=== PATIENT | female | born 1940 | race Caucasian/White ===

== ENCOUNTER 2018-03-09 11:40 | Inpatient (IN) | payer MEDICARE, MEDICAID ==
[2018-03-09 12:19] LABS: #Basophils 0.1 thou/uL (0.0-0.2); #Eosinphils 0.1 thou/uL (0.0-0.7); #Lymphocytes 1.3 thou/uL (1.20-3.40); #Monocytes 0.5 thou/uL (0.11-0.59); %Basophils 0.8 % (0.0-1.0); %Eosinophils 1.1 % (0.0-10.0); %Monocytes 4.2 % (0.0-10.0); Hemoglobin 12.1 g/dL (12.0-16.0); Mean Corpuscular HGB CONC 34.9 g/dL (32.0-36.0); Mean Corpuscular Hemoglobin 29.8 pg (27.0-31.0); Mean Corpuscular Volume 85.3 fL (78.0-98.0); Mean Platelet Volume 6.9 fL (7.4-10.4); Platelet Count 179 thou/uL (130-400); Red Blood Cell (RBC) Count 4.06 mill/uL (4.20-5.40)
[2018-03-09 12:35] LABS: ALT (SGPT) 9 U/L (8-55); AST (SGOT) 27 U/L (5-34); Albumin 3.9 g/dL (3.4-4.8); Alkaline Phosphatase 91 U/L (40-150); Anion Gap 19 mmol/L (10-20); BUN (Urea Nitrogen) 52 mg/dL (9.8-20.1); Bilirubin, Total 0.5 mg/dL (0.2-1.2); Calc. Creatinine Clearance 0 mL/min (70-130); Calcium 9.5 mg/dL (7.8-10.44); Carbon Dioxide 20 mmol/L (23-31); Chloride 110 mmol/L (98-107); Estimated GFR-MDRD 23; Globulin 3.5 g/dL (2.4-3.5); Glucose 136 mg/dL (83-110); Lipase 48 U/L (8-78); Potassium 4.7 mmol/L (3.5-5.1); Protein, Total 7.4 g/dL (6.0-8.3); Sodium 144 mmol/L (136-145)
[2018-03-09 12:36] LABS: CKMB 2.3 ng/mL (0-6.6); Troponin I 0.013 ng/mL (< 0.028)
[2018-03-09 12:42] LABS: Clarity Clear (Clear); Leukocyte Negative (Negative); Nitrite Negative (Negative); pH, Urine 5.5 (5.0-9.0)
[2018-03-09 12:43] LABS: Bilirubin Negative (Negative); Blood, Urine Negative (Negative); Glucose, Urine (Dipstick) Negative (Negative); Protein, Urine (Dipstick) Negative (Neg-Trace); Urobilinogen 0.2 mg/dL (0.2-1.0)
--- NOTE | 2018-03-09 13:22 | CT ---
CT ABDOMEN AND PELVIS NONCONTRAST: History: Flank pain. Comparison: 07-12-17 FINDINGS: Each renal collecting system, uterus, and urinary bladder are decompressed without stone apparent. Lack of contrast decreases sensitivity of exam for other abnormalities. Gallbladder is surgically abs ent. No evidence of bowel obstruction. There is fluid throughout the colon. Circumferential wall thic kening involving the distal sigmoid colon and rectum. Degenerative changes of the lumbar spine. Elect ronic stimulator overlies the sacrum with wires extending into the sacral neural foraminal. IMPRESSION: 1. No CT evidence of urinary tract obstruction or calcification. 2. Circumferential wall thickening in the lower sigmoid colon and rectum. Clinical correlation regard ing other signs and symptoms of distal sigmoid colitis/proctitis is required. Cause is not evident. POS: [facility]
--- NOTE | 2018-03-09 13:23 | RAD ---
AP CHEST: Indication: Chest pain. Comparison: None. FINDINGS: Heart size is accentuated by the exam technique. No definite consolidation, pleural effusion, or pneu mothorax is evident. No acute osseous abnormalities are evident. IMPRESSION: No acute cardiopulmonary abnormality. POS: [facility]
[2018-03-09 15:07] LABS: Anion Gap 17 mmol/L (10-20); BUN (Urea Nitrogen) 52 mg/dL (9.8-20.1); Calc. Creatinine Clearance 0 mL/min (70-130); Calcium 8.8 mg/dL (7.8-10.44); Carbon Dioxide 19 mmol/L (23-31); Chloride 113 mmol/L (98-107); Estimated GFR-MDRD 25; Glucose 115 mg/dL (83-110); Potassium 4.6 mmol/L (3.5-5.1); Sodium 144 mmol/L (136-145)
[2018-03-09] MEDS ORDERED: Ondansetron HCl/PF 4 MG/2 ML Vial SLOW IVP PRN (16:45)
[2018-03-09] MEDS ORDERED: Ondansetron ODT 4 MG TAB PO PRN (16:45)
[2018-03-09] MEDS: Sodium Chloride 0.9% 1,000 ML IV SCH (17:44)
[2018-03-09] MEDS ORDERED: Fluticasone Propionate Nasal Spray 16 gm Bottle NASAL PRN (18:48)
[2018-03-09] MEDS ORDERED: Acetaminophen 325 MG TAB PO PRN (18:48)
[2018-03-09] MEDS ORDERED: Loperamide HCl 2 MG CAP PO PRN (18:48)
[2018-03-09] MEDS ORDERED: Loratadine 10 MG TAB PO PRN (18:48)
[2018-03-09] MEDS: Artificial Tear Sol 15 ML BOT EA EYE SCH (20:00)
[2018-03-09] MEDS: Carbidopa/Levodopa 25-100 mg Tablet PO SCH (20:01)
[2018-03-09] MEDS: Famotidine 20 MG TAB PO SCH (20:02)
[2018-03-09] MEDS: Gabapentin 100 MG CAP PO SCH (20:16)
[2018-03-09] MEDS: Acetaminophen 325 MG TAB PO PRN (20:17)
[2018-03-09] MEDS ORDERED: Enoxaparin Sodium 30 MG/0.3 ML SYRINGE SC SCH (21:00)
[2018-03-09] MEDS ORDERED: metroNIDAZOLE 250 MG TAB PO SCH (21:00)
--- NOTE | 2018-03-10 00:11 | HP ---
CHIEF COMPLAINT: Nausea/vomiting/diarrhea/dehydration. HISTORY OF PRESENT ILLNESS: Ms. Spear is a 77-year-old female resident at [facility] who presented to the ER today with complaints of nausea, vomiting, and diarrhea with onset this morning. The patient was last seen at the half-way yesterday and was in her chronic usual state. She apparently had 5 episodes of emesis, as well as hypotension at the facility and was transported to the ER for further evaluation. Her ER workup revealed active diarrhea with acute kidney injury. Her creatinine was elevated above her baseline creatinine of 1.0 with history of chronic kidney disease stage 2. She also was admitted for a similar episode back in 07/2017 at which point she had some thickening in the rectosigmoid colon consistent with colitis. She was treated at that time with Cipro and Flagyl. Apparently prior to that admission , she had also had a urinary tract infection. During that admission, she was given IV fluids with improvement of her blood pressure, and her renal function returned to baseline. PAST MEDICAL HISTORY: 1. Paralysis agitans/Parkinson disease. 2. Recurrent urinary tract infections. 3. Frequent falls. 4. Dementia with behavioral disturbance. 5. Vitamin D deficiency. 6. Essential hypertension. 7. Congenital coronary artery anomaly. 8. Generalized weakness. 9. Chronic constipation. 10. Chronic abnormality of gait. 11. Depression. 12. Allergic rhinitis. FAMILY HISTORY: Could not be obtained from the patient, but from her charting, she does have one son, Herbie, who is alive. He is her medical power of civil litigation attorney. SOCIAL HISTORY: Nonsmoker. No current alcohol or illicit drug use. No significant past history known. Patient never per her previous charting and has been a resident at [facility]. PAST SURGICAL HISTORY: Cholecystectomy and electronic stimulator placement. MEDICATIONS: 1. Zofran ODT 4 mg p.o. q.8 hours p.r.n. nausea. 2. Voltaren 100 grams topically t.i.d. p.r.n. 3. Vitamin D3 of 1000 units p.o. daily. 4. Sertraline 25 mg p.o. at bedtime. 5. Namenda 10 mg p.o. b.i.d. 6. Metamucil 174 grams p.o. daily. 7. Multivitamin 1 p.o. daily. 8. Meloxicam 15 mg p.o. daily. 9. Loratadine 10 mg p.o. q.12 hours p.r.n. 10. Imodium 1 cap p.o. q.4 hours p.r.n. diarrhea. 11. Lisinopril 20 mg p.o. daily. 12. Gabapentin 100 mg p.o. t.i.d. 13. Flonase 1 spray in each naris q.12 hours p.r.n. allergies. 14. Exelon 1 patch transdermally daily. 15. Colace 1 capsule daily. 16. Carbidopa/levodopa extended release 25/100 one p.o. b.i.d. 17. Dulcolax 5 mg p.o. daily p.r.n. 18. Aspirin 81 mg p.o. daily. 19. Natural Tears 1 drop in each eye b.i.d. 20. Acetaminophen 2 capsules p.o. q.4 hours p.r.n. 21. Acetaminophen 650 mg [place] q.4 hours p.r.n. ALLERGIES: IODINE, PENICILLIN. REVIEW OF SYSTEMS: Unable to be obtained from the patient except that she denies pain. She has been having nausea, vomiting, and diarrhea at the facility and per nursing staff here, there is mucus and large volume stool. She denies abdominal pain. PHYSICAL EXAMINATION: VITAL SIGNS: Presenting vitals to the ER, blood pressure 77/50, heart rate 79, respirations 20, 0 pain, and 96% O2 sat on room air. At my exam, Temperature 98.6, heart rate 89, respirations 12, O2 sat 95% on room air, blood pressure 105 /53. . GENERAL: Well-developed female lying in bed with her eyes closed. She will not open her eyes on command, but answers questions with short 1-2 word answers and follows commands. HEENT: Pupils are equally round, reactive to light and accommodation, unable to evaluate extraocular movements. Nares are patent without discharge. OP is clear. NECK: Supple, without lymphadenopathy, thyromegaly, JVD or bruit. HEART: Regular rate and rhythm with normal S1, S2. No murmurs, clicks, rubs, or gallops. LUNGS: Clear to auscultation with good air entry bilaterally. No crackles or wheezes. ABDOMEN: Hypoactive bowel sounds in all four quadrants, soft, nontender, nondistended, no masses, guarding, or rebound tenderness. EXTREMITIES: No cyanosis or clubbing. Trace pretibial edema bilaterally. SKIN: Stage 1 pressure ulcer to coccyx. NEUROLOGIC: Generalized weakness, but cranial nerves II-XII are grossly intact without obvious focal deficits. Mask-like facies. LABORATORY DATA: White count 11.0 with 82% neutrophils, 12% lymphocytes, hemoglobin 12.1, hematocrit 34.6, platelets 179. Sodium 144, potassium 4.7, chloride 110, bicarb 20, BUN 52, creatinine 2.11, glucose 136, calcium 9.5, total bilirubin 0.5, AST 27, ALT 9, alkaline phosphatase 91, CK-MB 2.3, troponin I 0.013, B-type natriuretic peptide 377.5 (unknown baseline), serum total protein 7.4, albumin 3.9, globulin 3.5, lipase 48, lactic acid 3.0, repeat lactic acid at 14:45 of 2.8. Repeat basic metabolic profile at 02:45 with sodium 144, potassium 4.6, chloride 113, bicarb 19, BUN 52, creatinine 1.91 , glucose 115, calcium 8.8. Urinalysis is completely clear. C. diff, blood culture, stool culture, urine culture are pending. IMAGING: Chest x-ray shows no acute cardiopulmonary abnormality. Heart size is accentuated by the exam technique. No definite consolidation, pleural effusion, or pneumothorax is evident. No acute osseous abnormalities are evident. CT scan of the abdomen and pelvis without contrast shows no CT evidence of urinary tract obstruction or calcification. Circumferential wall thickening in the lower sigmoid colon and rectum. Clinical correlation regarding other signs and symptoms of distal sigmoid colitis/proctitis required. Cause not evident. Noted on this that the gallbladder is surgically absent. No evidence of bowel obstruction. Fluid is noted throughout the colon. Degenerative changes of the lumbar spine. Electronic stimulator overlies the sacrum with wires extending into the sacral neural foramen. ASSESSMENT AND PLAN: 1. Acute gastroenteritis/colitis. The patient's hypotension has been corrected with IV fluids. We will hold her antihypertensive regimen of lisinopril at this time until her blood pressure stabilizes and her renal function improves. We will empirically start Cipro and Flagyl. Send stool for C. diff and culture. Blood cultures and urine cultures will be performed and followed. We will treat her nausea with ondansetron p.o. or IV and her diarrhea with Imodium. We will add Floranex probiotic. We will give the patient Pepcid once daily for dyspepsia and GI stress ulcer prophylaxis, but renally dosed. We will repeat her CBC and basic metabolic profile in the morning. We will also hold her stool softener and constipation regimen at this time as well as her meloxicam as this can be hard on the GI tract. We will place her on a clear liquid diet and we will advance as tolerated. We will have contact precautions until her c. diff studies come back. 2. Dehydration. The patient has an unknown left ventricular ejection fraction , but for now, her blood pressure stabilized after fluids given in the emergency room. We will continue at her current rate of 100 mL per hour of normal saline. Repeat a basic metabolic profile in the morning. 3. Acute kidney injury. This is secondary to dehydration, which is secondary to copious diarrhea and vomiting. Again, we are holding her lisinopril and hydrating her. We will repeat her renal function in the morning. 4. Stage I sacral decubitus. We have ordered a foam overlay for her mattress, andrew-care and will turn the patient hourly. We will observe for improvement. 5. Parkinson's disease. The patient will be continued on her Carbidopa/ levodopa. 6. Dementia with behavioral disturbance. We will continue the patient's Exelon and Namenda. 7. Allergic rhinitis. Patient will be continued on her current regimen. 8. Depression. Patient will be continued on her sertraline. 9. Chronic pain. Patient will be continued on her gabapentin. 10. Vitamin D deficiency. Patient will be continued on her vitamin D. 11. Elevated lactic acid. This is lowering per past check. Should improve with rehydration. 12. Leukocytosis with left shift. This is likely due to infectious bacterial process. Please see problem #1. Repeat CBC in the a.m. 13. Elevated B-type natriuretic peptide. No baseline BNP for comparison. There was no signs of congestive heart failure on her chest x-ray. There is no history of on echocardiogram, so I can document her left ventricular ejection fraction. We will be cautious with her fluids. 14. Prophylaxis, patient will be given Pepcid 20 mg daily, which is renally dosed for GI stress ulcer prophylaxis and Lovenox 30 mg subcutaneous, which has been renally dosed for DVT prophylaxis. 15. Code status. I called and talked with her son, Herbie Spear, who states he is her medical power of civil litigation attorney and states that she has had an existing out of hospital DNR for many years and would like to continue that while the patient is hospitalized. REA
[2018-03-10] MEDS: Sodium Chloride 0.9% 1,000 ML IV SCH ×3 (02:24→19:22)
[2018-03-10 05:59] LABS: Anion Gap 14 mmol/L (10-20); BUN (Urea Nitrogen) 56 mg/dL (9.8-20.1); Calc. Creatinine Clearance 0 mL/min (70-130); Calcium 7.9 mg/dL (7.8-10.44); Carbon Dioxide 18 mmol/L (23-31); Chloride 115 mmol/L (98-107); Estimated GFR-MDRD 24; Glucose 84 mg/dL (83-110); Potassium 4.4 mmol/L (3.5-5.1); Sodium 143 mmol/L (136-145)
[2018-03-10 06:40] LABS: #Lymphocytes 0.7 thou/uL (1.20-3.40); #Monocytes 0.8 thou/uL (0.11-0.59); #Neutrophils 5.1 thou/uL (1.40-6.50); %Basophils 0.6 % (0.0-1.0); %Eosinophils 0.2 % (0.0-10.0); %Monocytes 11.9 % (0.0-10.0); %Neutrophils 76.3 % (42.0-75.0); Hemoglobin 8.4 g/dL (12.0-16.0); Mean Corpuscular HGB CONC 34.7 g/dL (32.0-36.0); Mean Corpuscular Hemoglobin 29.4 pg (27.0-31.0); Mean Corpuscular Volume 84.9 fL (78.0-98.0); Platelet Count 99 thou/uL (130-400); RBC Distribution Width 12.8 % (11.5-14.5); Red Blood Cell (RBC) Count 2.84 mill/uL (4.20-5.40); White Blood Cell (WBC) Count 6.7 thou/uL (4.8-10.8)
[2018-03-10] MEDS: Artificial Tear Sol 15 ML BOT EA EYE SCH ×2 (09:28→20:02)
[2018-03-10] MEDS: Multivit, Therapeutic 1 TAB PO SCH (09:32)
[2018-03-10] MEDS: Gabapentin 100 MG CAP PO SCH ×3 (09:32→20:00)
[2018-03-10] MEDS: Aspirin 81 mg Enteric Coated Tablet PO SCH (09:32)
[2018-03-10] MEDS: Floranex Packet PO SCH (09:33)
[2018-03-10] MEDS: Carbidopa/Levodopa 25-100 mg Tablet PO SCH ×2 (10:06→20:01)
[2018-03-10] MEDS: Rivastigmine 4.6mg/24 Hour PATCH TD SCH (17:05)
[2018-03-10] MEDS: Acetaminophen 325 MG TAB PO PRN (19:17)
[2018-03-10] MEDS: Famotidine 20 MG TAB PO SCH (20:01)
[2018-03-11 06:01] LABS: Anion Gap 11 mmol/L (10-20); BUN (Urea Nitrogen) 52 mg/dL (9.8-20.1); Calc. Creatinine Clearance 34 mL/min (70-130); Calcium 7.9 mg/dL (7.8-10.44); Carbon Dioxide 18 mmol/L (23-31); Chloride 117 mmol/L (98-107); Estimated GFR-MDRD 27; Glucose 86 mg/dL (83-110); Potassium 4.1 mmol/L (3.5-5.1); Sodium 142 mmol/L (136-145)
[2018-03-11 06:30] LABS: Hemoglobin 7.1 g/dL (12.0-16.0); Mean Corpuscular HGB CONC 34.6 g/dL (32.0-36.0); Mean Corpuscular Hemoglobin 29.4 pg (27.0-31.0); Mean Corpuscular Volume 84.8 fL (78.0-98.0); Mean Platelet Volume 7.1 fL (7.4-10.4); Platelet Count 79 thou/uL (130-400); RBC Distribution Width 12.9 % (11.5-14.5); Red Blood Cell (RBC) Count 2.41 mill/uL (4.20-5.40); White Blood Cell (WBC) Count 4.7 thou/uL (4.8-10.8)
[2018-03-11 06:31] LABS: #Eosinphils 0.1 thou/uL (0.0-0.7); #Lymphocytes 1.2 thou/uL (1.20-3.40); #Monocytes 0.5 thou/uL (0.11-0.59); #Neutrophils 2.9 thou/uL (1.40-6.50); %Basophils 0.5 % (0.0-1.0); %Eosinophils 2.4 % (0.0-10.0); %Lymphocytes 24.6 % (21.0-51.0); %Monocytes 10.6 % (0.0-10.0)
[2018-03-11] MEDS: Multivit, Therapeutic 1 TAB PO SCH (09:27)
[2018-03-11] MEDS: Carbidopa/Levodopa 25-100 mg Tablet PO SCH ×2 (09:27→20:08)
[2018-03-11] MEDS: Gabapentin 100 MG CAP PO SCH ×3 (09:27→20:07)
[2018-03-11] MEDS: Floranex Packet PO SCH (09:27)
[2018-03-11] MEDS: Artificial Tear Sol 15 ML BOT EA EYE SCH ×2 (09:28→20:14)
[2018-03-11] MEDS: Aspirin 81 mg Enteric Coated Tablet PO SCH (09:28)
[2018-03-11] MEDS: Rivastigmine 4.6mg/24 Hour PATCH TD SCH (09:28)
[2018-03-11] MEDS ORDERED: hydrALAZINE 20 MG/ML VIAL SLOW IVP PRN (14:26)
[2018-03-11 14:27] VITALS: BMI 28.6
[2018-03-11] MEDS ORDERED: hydrALAZINE 20 MG/ML VIAL ONE (15:01)
[2018-03-11 16:36] LABS: #Basophils 0.1 thou/uL (0.0-0.2); #Eosinphils 0.1 thou/uL (0.0-0.7); #Lymphocytes 1.1 thou/uL (1.20-3.40); #Monocytes 0.5 thou/uL (0.11-0.59); #Neutrophils 3.3 thou/uL (1.40-6.50); %Eosinophils 2.9 % (0.0-10.0); %Lymphocytes 21.6 % (21.0-51.0); %Monocytes 9.1 % (0.0-10.0); %Neutrophils 65.4 % (42.0-75.0); MDiff Complete? YES; Mean Corpuscular HGB CONC 34.8 g/dL (32.0-36.0); Mean Corpuscular Hemoglobin 29.3 pg (27.0-31.0); Mean Corpuscular Volume 84.1 fL (78.0-98.0); Mean Platelet Volume 7.2 fL (7.4-10.4); Platelet Count 95 thou/uL (130-400); RBC Distribution Width 12.7 % (11.5-14.5); Red Blood Cell (RBC) Count 2.74 mill/uL (4.20-5.40); Small Platelets SLIGHT
[2018-03-12 01:29] VITALS: TEMP 98.3
--- NOTE | 2018-03-12 03:47 | DIS ---
DATE OF ADMISSION: 03/09/2018 DATE OF DISCHARGE: 03/11/2018 ADMISSION DIAGNOSES: 1. Infectious gastroenteritis/colitis. 2. Dehydration. 3. Acute kidney injury on chronic kidney disease stage 3. 4. Lactic acidosis. DISCHARGE DIAGNOSES: 1. Infectious gastroenteritis/colitis. 2. Dehydration. 3. Acute kidney injury on chronic kidney disease stage 3. 4. Lactic acidosis. ATTENDING PHYSICIAN: Dr. [place] Burdick. PROCEDURES: 1. CT abdomen and pelvis performed on date of admission shows circumferential wall thickening in the lower sigmoid colon and rectum. Clinical correlation regarding other signs and symptoms of distal sigmoid colitis/proctitis is required. No evidence of urinary tract obstruction or calcification. 2. Chest x-ray performed on the date of admission shows no acute cardiopulmonary abnormality. 3. Blood cultures x2 negative for 48 hours. 4. Clostridium difficile antigen and toxin negative. 5. Urine culture, no growth at 48 hours. HISTORY AND PHYSICAL: Please see dictated report from the date of admission. HOSPITAL COURSE: Ms. Spear is a 77-year-old female, who is a resident of [facility], who had acute onset of vomiting and copious diarrhea as well as hypotension, and presented to the emergency room on 03/09/2018. Initially, her systolic blood pressure was in the 70s, but improved with copious IV fluid resuscitation. She also had a significant leukocytosis at 11,000 with 82% neutrophils and 12% lymphocytes. She has a history of chronic kidney disease stage 3 with a baseline GFR in the 40s, but on presentation had acute kidney injury with a BUN of 52 and creatinine 2.11. Her lactic acid level was elevated and the patient was admitted for further care. With IV fluids, her hypotension corrected. Her lisinopril was held. On the evening prior to discharge, her fluids were placed at a TKO rate and subsequently stopped this morning. Throughout the course of the day, she has had generous oral intake and has actually now become hypertensive. Her lisinopril will now be restarted. She did require one dose of hydralazine for a systolic blood pressure of greater than 180 and her blood pressure following that was 145/70. Regarding her leukocytosis, the patient was treated for presumptive infectious gastroenteritis and colitis based on her CT findings and clinical history. She was empirically started on Flagyl and Cipro. Stool studies were performed in the ER, which included a C. difficile, a stool culture. On the day of her discharge, I noted that the culture results had not come back and it turned out those initial orders had been canceled on the ED side, but I wasn't aware. I did re-order them on the day of her discharge. However, she has not had any bowel movements today. Her leukocytosis has improved to 5 on the day of her discharge. The C. diff antigen and toxin were negative and the Flagyl was discontinued when that result came back. She was continued on the Cipro and will be discharged on an additional 3-day course of Cipro 500 q.12 hours. Due to the presence of CT findings possibly similar to an event that occurred in July of this last year, I discussed with her son either repeating the CT in a few weeks versus having her see a [employer] assistant manager in a few weeks as an outpatient. She may need a colonoscopy performed for further workup, especially if her symptoms recur. Regarding her acute kidney injury, with IV fluid administration, this improved to a BUN of 52 and a creatinine of 1.79 on the day of discharge. We will repeat a basic metabolic profile in 1 week to ensure that this continues to return to baseline. The patient initially had a lactic acid level of 3, and repeat later showed this lowering to 2.8 with treatment. The patient also had a significant anemia that is presumptively due to dilution with the administration of the IV fluids, but also has a chronic component with her baseline hemoglobin somewhere in the 10-11 range. She likely also had some bleeding with her noted hemorrhoids and colitis. She had no significant hematochezia or melena noted during the admission. Repeating her hemoglobin on the afternoon of her discharge showed that it had stabilized at 8.0. Also noted, she had a decline in her platelets and this improved as well on the afternoon of her discharge. She will have a repeat CBC in approximately 1 week. Contributing factors to the declining platelet count included the administration of Lovenox due to inability to place SCDs initially due to severe diarrhea. This was discontinued and also her Pepcid that was given for GI prophylaxis was discontinued as well. This afternoon, the patient is back to her mental baseline. Her son is present. She has had adequate oral intake and has tolerated that well. She has had no emesis since the day of her admission. She has had no diarrhea or bowel movement episodes today. PHYSICAL EXAMINATION: VITAL SIGNS: Temperature 98.4, pulse 89, respirations 18, O2 sat 97% on room air, blood pressure 145/70. GENERAL: Well-developed, well-nourished, female who is now alert and oriented to her baseline. She now opens her eyes. She responds to questions and is able to give a little bit of a history. HEENT: Normocephalic, atraumatic. Pupils equally round and reactive to light and accommodation. Nares are patent without discharge. HEART: Regular rate and rhythm. Normal S1, S2. No murmurs, clicks, rubs, or gallops. LUNGS: Clear to auscultation bilaterally. No crackles or wheezes. ABDOMEN: Positive bowel sounds in all four quadrants. Soft, nondistended, nontender. No masses, guarding, or rebound tenderness. EXTREMITIES: No cyanosis or clubbing. Trace edema of the ankles. DISPOSITION: Discharge back to [facility]. CONDITION: Good. MEDICATIONS: 1. Acetaminophen 650 mg two p.o. q.4 hours. p.r.n. 2. Zofran ODT 4 mg p.o. q.8 hours p.r.n. 3. Voltaren 100 grams topically 3 times daily p.r.n. 4. Vitamin D3, 1000 units daily. 5. Sertraline 25 mg p.o. at bedtime. 6. Namenda 10 mg p.o. b.i.d. 7. Metamucil 174 grams p.o. daily. 8. Multivitamin 1 p.o. daily. 9. Imodium 1 capsule q.4 hours p.r.n. 10. Lisinopril 20 mg p.o. daily. 11. Gabapentin 100 mg p.o. t.i.d. 12. Flonase 1 spray in each naris q.12 hours p.r.n. 13. Exelon patch 13.3 mg daily. 14. Carbidopa/levodopa 25/100, one p.o. b.i.d. 15. Dulcolax suppository 5 mg p.o. daily p.r.n. constipation. 16. Aspirin 81 mg p.o. daily. 17. Artificial Tears 1 drop in each eye b.i.d. 18. Acetaminophen 2 cap p.o. q.4 hours p.r.n. 19. Tylenol suppositories 650 mg per rectum q.4 hours p.r.n. 20. Cipro 500 mg p.o. q.12 hours x3 days. 21. Floranex 1 gram p.o. daily x14 days. ADDITIONAL INSTRUCTIONS: A CBC and a BMP needs to be drawn in 1 week for followup of anemia and thrombocytopenia and to make sure her renal function returns to her baseline. The facility will perform referral and arrange transport for her to see Gastroenterology in approximately 3-4 weeks for followup of the abnormal CT findings. FOLLOWUP: Will be with my [facility] advanced practice architect, Ariadna Loyd, in approximately 7 days. Due to her deconditioning from her hospital stay, I have also ordered occupational and physical therapy to be performed at the facility. REA
[2018-03-12] MEDS: Artificial Tear Sol 15 ML BOT EA EYE SCH (08:14)
[2018-03-12] MEDS: Rivastigmine 4.6mg/24 Hour PATCH TD SCH (08:15)
[2018-03-12] MEDS: Lisinopril 20 MG TAB PO SCH ×2 (08:16→08:20)
[2018-03-12] MEDS: Carbidopa/Levodopa 25-100 mg Tablet PO SCH (08:19)
[2018-03-12] MEDS: Aspirin 81 mg Enteric Coated Tablet PO SCH (08:19)
[2018-03-12] MEDS: Multivit, Therapeutic 1 TAB PO SCH (08:20)
[2018-03-12] MEDS: Floranex Packet PO SCH (08:20)
[2018-03-12] MEDS: Gabapentin 100 MG CAP PO SCH (08:20)
[2018-03-12 08:41] VITALS: BP 150/66
== END 2018-03-12 11:55 | DRG 683 ==
LOC: BURERS 11:40 → BURMED 14:15
PROVIDERS: ADMIT Family Medicine; ATTEND Family Medicine
DX: N17.9 Acute kidney failure, unspecified (principal); A09 Infectious gastroenteritis and colitis, unspecified; E87.2 Acidosis; E86.0 Dehydration; G20 Parkinson's disease; I12.9 Hypertensive chronic kidney disease with stage 1 through stage 4 chronic kidney disease, or unspecified chronic kidney disease; F32.9 Major depressive disorder, single episode, unspecified; L89.151 Pressure ulcer of sacral region, stage 1; G89.29 Other chronic pain; E55.9 Vitamin D deficiency, unspecified; N18.3 Chronic kidney disease, stage 3 (moderate); D64.9 Anemia, unspecified; D69.6 Thrombocytopenia, unspecified; F02.80 Dementia in other diseases classified elsewhere, unspecified severity, without behavioral disturbance, psychotic disturbance, mood disturbance, and anxiety; J30.9 Allergic rhinitis, unspecified; Z88.0 Allergy status to penicillin; Z88.8 Allergy status to other drugs, medicaments and biological substances; Z79.82 Long term (current) use of aspirin; Z79.899 Other long term (current) drug therapy
CPT/HCPCS: 36415; 51701; 71045; 74176; 80048; 80053; 81003; 82274; 82553; 83605; 83690; 83880; 84484; 85025; 87040; 87086; 87324; 87449; 93005; 96360; 96361; A4216; A4353; J0360; J0744; J1650

== ENCOUNTER 2020-04-28 11:16 | Emergency (ER) | payer MEDICARE, OTHER, MEDICAID ==
[2020-04-28 11:48] LABS: #Basophils 0.1 thou/uL (0.0-0.2); #Eosinphils 0.2 thou/uL (0.0-0.7); #Lymphocytes 1.2 thou/uL (1.20-3.40); #Monocytes 0.5 thou/uL (0.11-0.59); #Neutrophils 4.3 thou/uL (1.40-6.50); %Eosinophils 2.5 % (0.0-10.0); %Lymphocytes 19.7 % (21.0-51.0); %Monocytes 8.5 % (0.0-10.0); %Neutrophils 68.3 % (42.0-75.0); Hemoglobin 9.6 g/dL (12.0-16.0); Mean Corpuscular HGB CONC 30.5 g/dL (32.0-36.0); Mean Corpuscular Volume 95.2 fL (78.0-98.0); Platelet Count 120 thou/uL (130-400); RBC Distribution Width 12.9 % (11.5-14.5); White Blood Cell (WBC) Count 6.3 thou/uL (4.8-10.8)
[2020-04-28 12:06] LABS: ALT (SGPT) 12 U/L (8-55); AST (SGOT) 18 U/L (5-34); Albumin 3.4 g/dL (3.4-4.8); Alkaline Phosphatase 73 U/L (40-110); Anion Gap 13 mmol/L (10-20); BUN (Urea Nitrogen) 39 mg/dL (9.8-20.1); Bilirubin, Total 0.4 mg/dL (0.2-1.2); Calc. Creatinine Clearance 0 mL/min (70-130); Calcium 8.5 mg/dL (7.8-10.44); Carbon Dioxide 24 mmol/L (23-31); Chloride 111 mmol/L (98-107); Estimated GFR-MDRD 25; Globulin 2.7 g/dL (2.4-3.5); Glucose 111 mg/dL (83-110); Protein, Total 6.1 g/dL (6.0-8.3); Sodium 144 mmol/L (136-145)
--- NOTE | 2020-04-28 19:06 | RAD ---
PORTABLE CHEST: 04/28/20 An AP portable film at 1151 is compared with the 07/29/18 study. The lungs are actually clearer today than before. There is no acute infiltrate, effusion, or vascular congestion. The cardiac size is normal. IMPRESSION: No acute thoracic finding. POS: [facility]
--- NOTE | 2020-04-28 19:51 | CT ---
CT OF THE BRAIN WITHOUT CONTRAST: 04/28/20 Comparison is made with the prior study dated 07/29/18. As before, atrophy and some chronic ischemic changes in the deep white matter are seen. There was no sign of mass, edema, or obvious acute stroke. There was a slightly low density area in the right vent ral mackenzie, however, I checked with the ER physician and there were no focal neurological findings, wilber s I believe this is an artifact. The visible paranasal sinuses and mastoid air cells are clear. IMPRESSION: Atrophy and chronic ischemic changes but no acute intracranial finding. Preliminary report called to Dr. Ba at 1206 on 04/28/20. POS: [facility]
== END 2020-04-28 13:14 | disposition short-term general hospital (02) ==
LOC: BURERS 11:16
DX: R55 Syncope and collapse (principal); I10 Essential (primary) hypertension; G20 Parkinson's disease; G30.9 Alzheimer's disease, unspecified; F02.80 Dementia in other diseases classified elsewhere, unspecified severity, without behavioral disturbance, psychotic disturbance, mood disturbance, and anxiety; I12.9 Hypertensive chronic kidney disease with stage 1 through stage 4 chronic kidney disease, or unspecified chronic kidney disease; N18.3 Chronic kidney disease, stage 3 (moderate); F32.9 Major depressive disorder, single episode, unspecified; Z79.51 Long term (current) use of inhaled steroids; Z79.82 Long term (current) use of aspirin; Z79.899 Other long term (current) drug therapy
CPT/HCPCS: 70450; 71045; 80053; 83605; 83880; 84484; 85025; 93005